=== PATIENT | male | born 1960 | race Caucasian/White ===

== ENCOUNTER 2018-03-18 09:55 | Inpatient (IN) | payer MEDICAID, OTHER ==
[~2018-03-18] VITALS: Ht 182.9 cm; Wt 96.0 kg
[2018-03-18] VITALS (15 sets, daily range): BP systolic 142–186; BP diastolic 73–115
[~2018-03-18 09:55] MED LIST: ASPI-1071 PO; ATOR10TA PO; CARV-50 PO; FURO-150 PO; HYDR-3972 PO; LISI40TA4 PO; PANT-47 PO; POTA10TA15 PO; THI100T PO
[2018-03-18 10:20] LABS: CLARITY,URINE Clear (Clear); COLOR,URINE Yellow (Yellow); GLUCOSE, URINE Negative (Neg); KETONES,URINE Trace mg/dl (Neg); LEUKOCYTE ESTERASE ,URINE Small (Neg); NITRITES, URINE Negative (Neg); OCCULT BLOOD,URINE Negative (Neg); PH,URINE 5.5 (4.8-8.0); PROTEIN,URINE Trace mg/dl (Neg)
[2018-03-18 10:26] LABS: UA COLLECTION TYPE CLN CATCH MIDSTREAM
[2018-03-18 10:42] LABS: BASOPHILS # (AUTO) 0.1 X10'3 (0-0.2); BASOPHILS % (AUTO) 0.7 % (0-1); EOSINOPHILS # (AUTO) 0.2 X10'3 (0-0.9); EOSINOPHILS % (AUTO) 2.1 % (0-6); HEMOGLOBIN 15.9 g/dl (14.0-17.9); LYMPHOCYTES # (AUTO) 1.2 X10'3 (1.1-4.8); LYMPHOCYTES % (AUTO) 16.8 % (21-51); MEAN CORPUSCULAR HEMOGLOBIN 32.9 PG (27.0-31.0); MEAN CORPUSCULAR HGB CONC 32.4 % (33.0-36.5); MEAN CORPUSCULAR VOLUME 101.5 FL (78-98); MEAN PLATELET VOLUME 9.4 FL (7.4-10.4); MONOCYTES # (AUTO) 0.7 X10'3 (0-0.9); MONOCYTES % (AUTO) 10.4 % (2-12); PLATELET COUNT 231 X10'3 (140-440); RED BLOOD COUNT 4.83 X10'6 (4.70-6.10); RED CELL DISTRIBUTION WIDTH 12.4 % (11.5-14.5); WHITE BLOOD COUNT 7.2 X10'3 (4.5-11.0)
[2018-03-18 10:42] LABS: BACTERIA,URINE NONE SEEN /HPF (Neg); MUCUS STRANDS FEW /LPF (Neg); RBC,URINE NONE SEEN /HPF (0-2); SQUAMOUS EPITHELIAL CELL,UR FEW /LPF (FEW); WBC,URINE 0-4 /HPF (0-4)
[2018-03-18 10:48] LABS: ALANINE AMINOTRANSFERASE 48 U/L (12-78); ALKALINE PHOSPHATASE 61 IU/L (46-116); ANION GAP 6 (8-16); ASPARTATE AMINO TRANSFERASE 27 U/L (10-37); BILIRUBIN,TOTAL 0.5 MG/DL (0.1-1.0); BLOOD UREA NITROGEN 18 MG/DL (7-18); BUN/CREATININE RATIO 9.2 (5.4-32.0); CHLORIDE 101 MMOL/L (99-107); CREATININE 1.95 MG/DL (0.60-1.10); GLUCOSE 112 MG/DL (70-104); LIPASE 181 U/L (73-393); SODIUM 136 MMOL/L (135-145); TOTAL CARBON DIOXIDE 29.4 MMOL/L (24-32); eGFR 36 ML/MIN
[2018-03-18] MEDS ORDERED: HYDROmorphone 1 mg/ml syringe IV ONE (12:15)
[2018-03-18] MEDS ORDERED: cloNIDine 0.1 mg tablet PO ONE (12:15)
[2018-03-18] MEDS ORDERED: normal saline 1000ML IV soln IVB ONE (12:20)
[2018-03-18] MEDS ORDERED: magnesium hydroxide 30ml (MOM) UD suspension PO PRN (14:10)
[2018-03-18] MEDS ORDERED: acetaminophen 325mg tablet PO PRN (14:10)
[2018-03-18] MEDS ORDERED: HYDROmorphone inj. 0.5 MG/0.5 ML DISP.SYRIN IV PRN ×2 (14:10)
[2018-03-18] MEDS ORDERED: diphenhydrAMINE 50 mg/ml inj IV PRN (14:10)
[2018-03-18] MEDS ORDERED: acetaminophen 650mg rectal suppository RC PRN (14:10)
[2018-03-18] MEDS ORDERED: metoclopramide 5 mg/ml inj IV PRN (14:10)
[2018-03-18] MEDS ORDERED: ondansetron/PF 4mg/2ml inj IV PRN ×2 (14:10→18:40)
[2018-03-18] MEDS ORDERED: diphenhydrAMINE 25mg capsule PO PRN (14:10)
[2018-03-18] MEDS ORDERED: HYDROcodone/acetaminophen 10/325mg tab PO PRN (14:10)
[2018-03-18] MEDS ORDERED: morphine 4 MG/ML inj SYRINge IV PRN ×4 (14:10→18:40)
[2018-03-18] MEDS ORDERED: bisacodyl 10mg suppository rectal RC PRN (14:10)
[2018-03-18] MEDS ORDERED: mag hydrox/Alum hydrox/simeth 30ml oral suspension PO PRN (14:10)
[2018-03-18 14:42] LABS: PARTIAL THROMBOPLASTIN TIME 27 SECONDS (22-32); PROTHROMBIN TIME 10.6 SECONDS (9.0-12.0)
[2018-03-18] MEDS: pantoprazole 40 MG vial IV SCH (14:44)
[2018-03-18] MEDS: dextrose 5%-1/2 normal saline 1,000 ML IV SCH ×2 (14:44→20:36)
[2018-03-18 14:55] LABS: HEMOGLOBIN A1C 5.9 % (4.5-6.2); MAGNESIUM 2.3 MG/DL (1.5-2.4); PHOSPHORUS 3.2 MG/DL (2.3-4.5)
[2018-03-18] MEDS: hydrALAZINE 20mg/ml inj. IV PRN ×2 (15:39→18:42)
[2018-03-18] MEDS ORDERED: iohexol 300 MG/1 ML 50ml polymer ONE (16:15)
[2018-03-18 17:35] LABS: URINE AMPHETAMINE SCREEN NEGATIVE (Neg); URINE BARBITUATE SCREEN NEGATIVE (Neg); URINE BENZODIAZEPINES SCREEN NEGATIVE (Neg); URINE CANNABINOID SCREEN NEGATIVE (Neg); URINE COCAINE SCREEN NEGATIVE (Neg); URINE METHADONE SCREEN NEGATIVE (Neg); URINE OPIATE SCREEN NEGATIVE (Neg); URINE PHENCYCLIDINE SCREEN NEGATIVE (Neg)
[2018-03-18] MEDS ORDERED: propofol inj 20 ML IV ONE (17:51)
[2018-03-18] MEDS ORDERED: fentaNYL/PF 50MCG/1 ML 2ML syringe ONE (17:51)
[2018-03-18] MEDS ORDERED: ceFAZolin 1000mg inj ONE ×2 (17:51)
[2018-03-18] MEDS ORDERED: midazolam 2 mg/2 ml injection ONE (17:51)
[2018-03-18] MEDS ORDERED: sevoflurane 250ml liquid IH ONE (17:54)
[2018-03-18] MEDS ORDERED: ringers solution, lacted 1,000 ML IV SCH (18:37)
[2018-03-18] MEDS ORDERED: meperidine/PF 25mg/ml syringe IV PRN ×3 (18:40)
[2018-03-18] MEDS ORDERED: labetalol 20mg/4ml (5mg/ml) syringe IV PRN (18:40)
[2018-03-18] MEDS ORDERED: proCHLORperazine 10 MG/2 ml inj IV PRN (18:40)
[2018-03-18] MEDS ORDERED: CefTRIAXone inj 1,000 MG in dextrose 5%-water 50ml 50 ML IV SCH (20:00)
[2018-03-18] MEDS: docusate sod 100mg capsule PO SCH (20:34)
[2018-03-18] MEDS: lisinopril 20mg tablet PO SCH (20:34)
[2018-03-18] MEDS: carvedilol 6.25mg tablet PO SCH (20:35)
[2018-03-18] MEDS ORDERED: temazepam 15mg capsule PO PRN (21:00)
[2018-03-18] MEDS: cloNIDine 0.1 mg tablet PO SCH (21:36)
[2018-03-19] VITALS: BP 141/83
[2018-03-19 03:53] VITALS: BP 148/77
[2018-03-19] MEDS: dextrose 5%-1/2 normal saline 1,000 ML IV SCH ×4 (04:15→19:16)
[2018-03-19 05:48] LABS: BASOPHILS % (AUTO) 0.5 % (0-1); EOSINOPHILS # (AUTO) 0.3 X10'3 (0-0.9); EOSINOPHILS % (AUTO) 3.1 % (0-6); HEMATOCRIT 40.5 % (42.0-52.0); HEMOGLOBIN 13.7 g/dl (14.0-17.9); LYMPHOCYTES # (AUTO) 0.9 X10'3 (1.1-4.8); LYMPHOCYTES % (AUTO) 10.8 % (21-51); MEAN CORPUSCULAR HEMOGLOBIN 33.8 PG (27.0-31.0); MEAN CORPUSCULAR HGB CONC 33.8 % (33.0-36.5); MEAN CORPUSCULAR VOLUME 100.1 FL (78-98); MEAN PLATELET VOLUME 9.2 FL (7.4-10.4); MONOCYTES # (AUTO) 0.7 X10'3 (0-0.9); MONOCYTES % (AUTO) 8.3 % (2-12); NEUTROPHILS # (AUTO) 6.4 X10'3 (1.8-7.7); NEUTROPHILS % (AUTO) 77.3 % (42-75); PLATELET COUNT 203 X10'3 (140-440); RED BLOOD COUNT 4.04 X10'6 (4.70-6.10); RED CELL DISTRIBUTION WIDTH 13.2 % (11.5-14.5); WHITE BLOOD COUNT 8.3 X10'3 (4.5-11.0)
[2018-03-19 06:26] LABS: ALANINE AMINOTRANSFERASE 31 U/L (12-78); ALBUMIN 2.9 G/DL (3.4-5.0); ALBUMIN/GLOBULIN RATIO 0.9 (1.1-1.5); ALKALINE PHOSPHATASE 45 IU/L (46-116); ANION GAP 9 (8-16); ASPARTATE AMINO TRANSFERASE 15 U/L (10-37); BILIRUBIN,TOTAL 0.3 MG/DL (0.1-1.0); BLOOD UREA NITROGEN 15 MG/DL (7-18); BUN/CREATININE RATIO 8.8 (5.4-32.0); CALCIUM 8.2 MG/DL (8.5-10.1); CHLORIDE 103 MMOL/L (99-107); CHOLESTEROL 101 MG/DL (0-200); GLUCOSE 125 MG/DL (70-104); HDL CHOLESTEROL 34 MG/DL (35-60); LDL CHOLESTEROL 60 MG/DL (50-100); POTASSIUM 3.9 MMOL/L (3.5-5.1); SODIUM 136 MMOL/L (135-145); TOTAL CARBON DIOXIDE 23.8 MMOL/L (24-32); TOTAL PROTEIN 6.1 G/DL (6.4-8.2); TRIGLYCERIDES 69 MG/DL (20-135); eGFR 42 ML/MIN
[2018-03-19 07:13] VITALS: BP 152/92
[2018-03-19] MEDS: pantoprazole 40 MG vial IV SCH (07:21)
[2018-03-19] MEDS: carvedilol 6.25mg tablet PO SCH ×2 (07:22→20:09)
[2018-03-19] MEDS: cloNIDine 0.1 mg tablet PO SCH ×3 (07:22→20:09)
[2018-03-19] MEDS: docusate sod 100mg capsule PO SCH ×2 (07:22→20:09)
[2018-03-19] MEDS: lisinopril 20mg tablet PO SCH (07:22)
[2018-03-19] MEDS: cefTRIAXone 1g/NS 100ml IVPB 100 ML IV SCH ×2 (07:23→20:09)
[2018-03-19] MEDS: nicotine 21mg patch - 24 hr TD SCH (07:23)
[2018-03-19] MEDS: HYDROcodone/acetaminophen 5mg/325mg tablet PO PRN ×2 (07:23→20:13)
[2018-03-19 11:25] VITALS: BP 159/93
[2018-03-19] MEDS ORDERED: NO HOME MEDS (12:05)
[2018-03-19 18:00] VITALS: BP 173/94
[2018-03-20] VITALS: BP 177/99
[2018-03-20 00:25] VITALS: BP 142/85
[2018-03-20] MEDS: dextrose 5%-1/2 normal saline 1,000 ML IV SCH ×2 (02:25→10:10)
[2018-03-20 05:46] LABS: BASOPHILS % (AUTO) 0.5 % (0-1); EOSINOPHILS # (AUTO) 0.4 X10'3 (0-0.9); EOSINOPHILS % (AUTO) 6.3 % (0-6); HEMATOCRIT 38.7 % (42.0-52.0); HEMOGLOBIN 13.1 g/dl (14.0-17.9); LYMPHOCYTES # (AUTO) 1.2 X10'3 (1.1-4.8); LYMPHOCYTES % (AUTO) 21.4 % (21-51); MEAN CORPUSCULAR HEMOGLOBIN 34.1 PG (27.0-31.0); MEAN CORPUSCULAR HGB CONC 33.8 % (33.0-36.5); MEAN CORPUSCULAR VOLUME 101.1 FL (78-98); MEAN PLATELET VOLUME 9.7 FL (7.4-10.4); MONOCYTES # (AUTO) 0.8 X10'3 (0-0.9); MONOCYTES % (AUTO) 14.7 % (2-12); NEUTROPHILS # (AUTO) 3.2 X10'3 (1.8-7.7); NEUTROPHILS % (AUTO) 57.1 % (42-75); PLATELET COUNT 173 X10'3 (140-440); RED BLOOD COUNT 3.83 X10'6 (4.70-6.10); WHITE BLOOD COUNT 5.7 X10'3 (4.5-11.0)
[2018-03-20 06:31] LABS: ALANINE AMINOTRANSFERASE 29 U/L (12-78); ALBUMIN 2.8 G/DL (3.4-5.0); ALBUMIN/GLOBULIN RATIO 0.9 (1.1-1.5); ALKALINE PHOSPHATASE 45 IU/L (46-116); ANION GAP 10 (8-16); ASPARTATE AMINO TRANSFERASE 20 U/L (10-37); BILIRUBIN,TOTAL 0.2 MG/DL (0.1-1.0); BLOOD UREA NITROGEN 15 MG/DL (7-18); BUN/CREATININE RATIO 9.3 (5.4-32.0); CALCIUM 8.2 MG/DL (8.5-10.1); CHLORIDE 106 MMOL/L (99-107); CREATININE 1.61 MG/DL (0.60-1.10); GLUCOSE 120 MG/DL (70-104); POTASSIUM 3.9 MMOL/L (3.5-5.1); SODIUM 139 MMOL/L (135-145); TOTAL CARBON DIOXIDE 23.2 MMOL/L (24-32); eGFR 45 ML/MIN
[2018-03-20] MEDS: lisinopril 20mg tablet PO SCH (07:28)
[2018-03-20] MEDS: cloNIDine 0.1 mg tablet PO SCH ×2 (07:29→13:09)
[2018-03-20] MEDS: carvedilol 6.25mg tablet PO SCH (07:29)
[2018-03-20] MEDS ORDERED: pantoprazole 40mg Tablet.DR PO SCH (07:30)
[2018-03-20] MEDS: cefTRIAXone 1g/NS 100ml IVPB 100 ML IV SCH (07:31)
[2018-03-20] MEDS: nicotine 21mg patch - 24 hr TD SCH (07:31)
[2018-03-20 08:00] VITALS: BP 169/105
[2018-03-20] MEDS: docusate sod 100mg capsule PO SCH (08:00)
[2018-03-20 08:45] VITALS: BP 154/95
[2018-03-20 12:00] VITALS: BP 156/97
[2018-03-20] MEDS ORDERED: CARV6.256 PO (15:04)
[2018-03-20] MEDS ORDERED: TRAM50TA2 PO (15:04)
[2018-03-20] MEDS ORDERED: LISI-600 PO (15:04)
== END 2018-03-20 17:40 | disposition home health service (06) | DRG 465 ==
LOC: ER 09:56 → ED HOLD 14:09 → SUR 3N 16:05
PROVIDERS: ADMIT Family Medicine; ATTEND Family Medicine
PROC: BT1F1ZZ Fluoroscopy of Left Kidney, Ureter and Bladder using Low Osmolar Contrast (ICD-10-PCS; 2018-03-18)
PROC: 0T778DZ Dilation of Left Ureter with Intraluminal Device, Via Natural or Artificial Opening Endoscopic (ICD-10-PCS; principal; 2018-03-18 17:54)
DX: N13.2 Hydronephrosis with renal and ureteral calculous obstruction (principal); N17.9 Acute kidney failure, unspecified; I13.0 Hypertensive heart and chronic kidney disease with heart failure and stage 1 through stage 4 chronic kidney disease, or unspecified chronic kidney disease; I50.9 Heart failure, unspecified; N18.3 Chronic kidney disease, stage 3 (moderate); I16.1 Hypertensive emergency; Z60.2 Problems related to living alone; I25.10 Atherosclerotic heart disease of native coronary artery without angina pectoris; E66.9 Obesity, unspecified; F17.220 Nicotine dependence, chewing tobacco, uncomplicated; J44.9 Chronic obstructive pulmonary disease, unspecified; N40.0 Benign prostatic hyperplasia without lower urinary tract symptoms; Z72.89 Other problems related to lifestyle; I25.2 Old myocardial infarction; Z82.49 Family history of ischemic heart disease and other diseases of the circulatory system; Z68.28 Body mass index [BMI] 28.0-28.9, adult
CPT/HCPCS: 36415; 71045; 74176; 76000; 80053; 80061; 80305; 81001; 83036; 83690; 83735; 83880; 84100; 84443; 84484; 85025; 85610; 85730; 87070; 87077; 87088; 87186; 96361; 96374; 99285; A4402; C1758; C1769; C2617; C9113; J0360; J0690; J0696; J1170; J2250; J2704; J3010; J7030; J7060; J7120; Q9967

== ENCOUNTER 2019-03-07 15:54 | Inpatient (IN) | payer MEDICAID, OTHER ==
[~2019-03-07] VITALS: Ht 182.9 cm; Wt 100.0 kg
[~2019-03-07 15:54] MED LIST changes: -ASPI-1071 PO; -ATOR10TA PO; -CARV-50 PO; +CARV6.256 PO; -FURO-150 PO; -HYDR-3972 PO; +LISI-600 PO; -LISI40TA4 PO; +NO HOME MEDS; -PANT-47 PO; -POTA10TA15 PO; -THI100T PO; +TRAM50TA2 PO
[2019-03-07] MEDS ORDERED: furosemide 20MG tablet PO ONE (16:05)
[2019-03-07] MEDS ORDERED: nitroGLYCERIN 0.4mg/hour patch TD ONE (16:05)
[2019-03-07] MEDS ORDERED: carVEDilol 3.125mg tablet PO SCH ×2 (16:15→20:00)
[2019-03-07 16:26] LABS: BASOPHILS # (AUTO) 0.1 X10'3 (0-0.2); EOSINOPHILS # (AUTO) 0.3 X10'3 (0-0.9); HEMATOCRIT 41.1 % (42.0-52.0); LYMPHOCYTES # (AUTO) 1.2 X10'3 (1.1-4.8); LYMPHOCYTES % (AUTO) 14.7 % (21-51); MEAN CORPUSCULAR HGB CONC 34.1 g/dL (33.0-36.5); MEAN CORPUSCULAR VOLUME 102.5 FL (78-98); MEAN PLATELET VOLUME 9.3 FL (7.4-10.4); MONOCYTES # (AUTO) 0.9 X10'3 (0-0.9); MONOCYTES % (AUTO) 11.2 % (2-12); NEUTROPHILS # (AUTO) 5.6 X10'3 (1.8-7.7); NEUTROPHILS % (AUTO) 69.1 % (42-75); PLATELET COUNT 191 X10'3 (140-440); RED BLOOD COUNT 4.01 X10'6 (4.70-6.10); WHITE BLOOD COUNT 8.1 X10'3 (4.5-11.0)
--- NOTE | 2019-03-07 16:26 | NUR ---
PT IS RESTING QUIETLY ON BED, RESP EVEN AND UNLABORED, SKIN P/W/D, WAITING FOR LAB RESULTS
[2019-03-07 16:43] LABS: ALANINE AMINOTRANSFERASE 93 U/L (12-78); ALBUMIN 3.4 G/DL (3.4-5.0); ALBUMIN/GLOBULIN RATIO 1.1 (1.1-1.5); ALKALINE PHOSPHATASE 57 IU/L (46-116); ANION GAP 10 (8-16); ASPARTATE AMINO TRANSFERASE 33 U/L (10-37); BILIRUBIN,TOTAL 0.7 MG/DL (0.1-1.0); BLOOD UREA NITROGEN 23 MG/DL (7-18); BUN/CREATININE RATIO 12.2 (5.4-32.0); CALCIUM 8.5 MG/DL (8.5-10.1); CHLORIDE 109 MMOL/L (99-107); CREATININE 1.89 MG/DL (0.60-1.10); GLUCOSE 109 MG/DL (70-104); SODIUM 142 MMOL/L (135-145); TOTAL CARBON DIOXIDE 23.2 MMOL/L (24-32); TOTAL PROTEIN 6.6 G/DL (6.4-8.2); eGFR 37 ML/MIN
[2019-03-07 16:48] LABS: MAGNESIUM 2.1 MG/DL (1.5-2.4)
[2019-03-07 16:52] LABS: D-DIMER 0.81 MG/L FEU (0-0.50)
[2019-03-07] MEDS ORDERED: magnesium hydroxide 30ml (MOM) UD suspension PO PRN (17:35)
[2019-03-07] MEDS ORDERED: hydrALAZINE 20mg/ml inj. IV PRN (17:35)
[2019-03-07] MEDS ORDERED: ondansetron/PF 4mg/2ml inj IV PRN (17:35)
[2019-03-07] MEDS ORDERED: mag hydrox/Alum hydrox/simeth 30ml oral suspension PO PRN (17:35)
[2019-03-07] MEDS ORDERED: acetaminophen 325mg tablet PO PRN (17:35)
[2019-03-07] MEDS ORDERED: thiamine 100mg/ml 2ml inj. IV ONE (17:40)
[2019-03-07] MEDS ORDERED: dextrose 50%-water 50ml dispensing syringe IV PRN (17:40)
[2019-03-07] MEDS ORDERED: LORazepam 2 mg/ml vial IV PRN (17:40)
[2019-03-07] MEDS ORDERED: enoxaparin 100mg/ml syringe SUBCUT ONE (17:40)
--- NOTE | 2019-03-07 18:26 | NUR ---
PT IS RESTING QUIETLY ON GURNEY, RESP EVEN AND UNLABORED, WAITING FOR BED ASSIGNMENT
[2019-03-07] MEDS ORDERED: heparin, porcine 5000 units/ml vial SQ SCH (20:00)
[2019-03-07] MEDS: furosemide 40mg/4ml inj IV SCH (20:00)
[2019-03-07] MEDS: carvedilol 6.25mg tablet PO SCH (20:09)
--- NOTE | 2019-03-07 20:10 | NUR ---
PT C/O HEADACHE 09/05, DR LOMAX GAVE VERBAL ORDER TO HOLD LASIX IV AND TO GIVE COREG, PT CONTINUES TO REST QUIETLY ON GURNEY, RESP EVEN AND UNLABORED, EMPTIED URINAL OF 800ML OF YELLOW URINE
--- NOTE | 2019-03-07 20:45 | NUR ---
I have received report from NATE Mcintosh in ER and had the opportunity to ask questions and assume patient care. Awaiting patient arrival to room 3027A.
[2019-03-07 20:55] VITALS: BP 164/101
--- NOTE | 2019-03-07 20:55 | NUR ---
Patient arrived to [facility] via [place]. Patient ambulated from [facility] to bedside with some shortness of breath. Patient 99 on 2L NC. Titrated down to 1L NC to keep between 88-90% per provider order. Placed on telemetry box 57. Patient is awake and oriented X4. Nitroglycerin patch on right shoulder. Blood pressure elevated at 164/101 with HR 80 and no PRN's at this time. Will contact hospitalist to address elevated BP.
--- NOTE | 2019-03-07 21:15 | NUR ---
Dr. Olivares called and notified of elevated BP of 164/101. Gave one time order for Coreg 6.25 mg PO stat.
[2019-03-07] MEDS ORDERED: carvedilol 6.25mg tablet PO STA (21:23)
[2019-03-07 22:00] VITALS: BP 119/76
--- NOTE | 2019-03-08 01:21 | NUR ---
Reassessed BP after one time dose of 6.25mg coreg at 2200 03/07 and was 119/76 with HR 73. Will continue to monitor closely.
[2019-03-08 03:00] VITALS: BP 132/83
[2019-03-08 05:49] LABS: BASOPHILS # (AUTO) 0.1 X10'3 (0-0.2); MEAN CORPUSCULAR HEMOGLOBIN 35.3 PG (27.0-31.0); MEAN PLATELET VOLUME 9.6 FL (7.4-10.4); MONOCYTES # (AUTO) 0.8 X10'3 (0-0.9)
[2019-03-08 05:52] LABS: BASOPHILS % (AUTO) 1.2 % (0-1); EOSINOPHILS # (AUTO) 0.4 X10'3 (0-0.9); EOSINOPHILS % (AUTO) 5.5 % (0-6); HEMOGLOBIN 12.9 g/dl (14.0-17.9); LYMPHOCYTES # (AUTO) 1.4 X10'3 (1.1-4.8); LYMPHOCYTES % (AUTO) 20.4 % (21-51); MEAN CORPUSCULAR HGB CONC 33.9 g/dL (33.0-36.5); MEAN CORPUSCULAR VOLUME 104.1 FL (78-98); MONOCYTES % (AUTO) 11.7 % (2-12); NEUTROPHILS # (AUTO) 4.2 X10'3 (1.8-7.7); NEUTROPHILS % (AUTO) 61.2 % (42-75); PLATELET COUNT 162 X10'3 (140-440); RED BLOOD COUNT 3.65 X10'6 (4.70-6.10); RED CELL DISTRIBUTION WIDTH 14.6 % (11.5-14.5); WHITE BLOOD COUNT 6.9 X10'3 (4.5-11.0)
[2019-03-08 06:13] LABS: ALBUMIN 3.1 G/DL (3.4-5.0); ANION GAP 11 (8-16); BLOOD UREA NITROGEN 22 MG/DL (7-18); BUN/CREATININE RATIO 12.5 (5.4-32.0); CALCIUM 8.4 MG/DL (8.5-10.1); CHLORIDE 107 MMOL/L (99-107); CREATININE 1.76 MG/DL (0.60-1.10); GLUCOSE 92 MG/DL (70-104); POTASSIUM 3.5 MMOL/L (3.5-5.1); SODIUM 142 MMOL/L (135-145); TOTAL CARBON DIOXIDE 24.4 MMOL/L (24-32); eGFR 40 ML/MIN
--- NOTE | 2019-03-08 06:25 | NUR ---
Problems reprioritized. Patient report given, questions answered & plan of care reviewed with NATE Laguerre and NATE Wall.
--- NOTE | 2019-03-08 06:35 | NUR ---
Patient in room PCU 3026. I have received report from Prasanth SULLIVAN and had the opportunity to ask questions and assume patient care. Patient awake in bed. In no acute distress. Will continue to monitor.
--- NOTE | 2019-03-08 06:37 | NUR ---
Patient in room PCU 3023G. I have received report from NATE Rader and had the opportunity to ask questions and assume patient care. Pt awake, in bed at this time. Denies any discomfort or distress. All immediate needs met at this time.
[2019-03-08 07:00] VITALS: BP 172/104
[2019-03-08] MEDS: furosemide 40mg/4ml inj IV SCH ×2 (07:29→19:20)
[2019-03-08] MEDS: carvedilol 6.25mg tablet PO SCH ×2 (07:29→19:20)
[2019-03-08] MEDS: amLODIPine 5mg tablet PO SCH (07:30)
[2019-03-08 11:00] VITALS: BP 146/93
[2019-03-08 15:00] VITALS: BP 153/104
--- NOTE | 2019-03-08 17:56 | NUR ---
[place] documentation: I have reviewed and agree with all interventions, assessments performed and documented by Mae SULLIVAN. [place] Medication Administration: For this medication-pass time frame, all medication were reviewed, dispensed, administered and documented per hospital policy by NATE Wall.
[2019-03-08 18:00] VITALS: BP 167/103
--- NOTE | 2019-03-08 18:25 | NUR ---
Patient in room PCU 3024S. I have received report from Carlotta RN and NATE Wall and had the opportunity to ask questions and assume patient care.
--- NOTE | 2019-03-08 18:33 | NUR ---
Problems reprioritized. Patient report given, questions answered & plan of care reviewed with Katie SULLIVAN. Patient stable at transfer of care.
[2019-03-08 22:00] VITALS: BP 148/89
[2019-03-09 02:00] VITALS: BP 116/66
[2019-03-09 05:19] LABS: BASOPHILS # (AUTO) 0.1 X10'3 (0-0.2); BASOPHILS % (AUTO) 1.1 % (0-1); EOSINOPHILS # (AUTO) 0.4 X10'3 (0-0.9); EOSINOPHILS % (AUTO) 6.1 % (0-6); HEMATOCRIT 41.1 % (42.0-52.0); LYMPHOCYTES # (AUTO) 1.3 X10'3 (1.1-4.8); LYMPHOCYTES % (AUTO) 20.1 % (21-51); MEAN CORPUSCULAR HEMOGLOBIN 34.9 PG (27.0-31.0); MEAN CORPUSCULAR HGB CONC 34.1 g/dL (33.0-36.5); MEAN CORPUSCULAR VOLUME 102.3 FL (78-98); MEAN PLATELET VOLUME 9.1 FL (7.4-10.4); MONOCYTES # (AUTO) 0.9 X10'3 (0-0.9); MONOCYTES % (AUTO) 13.5 % (2-12); NEUTROPHILS # (AUTO) 3.8 X10'3 (1.8-7.7); NEUTROPHILS % (AUTO) 59.2 % (42-75); PLATELET COUNT 177 X10'3 (140-440); RED BLOOD COUNT 4.02 X10'6 (4.70-6.10); RED CELL DISTRIBUTION WIDTH 14.4 % (11.5-14.5); WHITE BLOOD COUNT 6.4 X10'3 (4.5-11.0)
[2019-03-09 05:39] LABS: ALBUMIN 3.1 G/DL (3.4-5.0); ANION GAP 8 (8-16); BLOOD UREA NITROGEN 19 MG/DL (7-18); BUN/CREATININE RATIO 11.5 (5.4-32.0); CALCIUM 8.5 MG/DL (8.5-10.1); CHLORIDE 105 MMOL/L (99-107); CREATININE 1.65 MG/DL (0.60-1.10); GLUCOSE 97 MG/DL (70-104); POTASSIUM 3.5 MMOL/L (3.5-5.1); SODIUM 140 MMOL/L (135-145); TOTAL CARBON DIOXIDE 26.9 MMOL/L (24-32); eGFR 43 ML/MIN
[2019-03-09 06:00] VITALS: BP 165/103
--- NOTE | 2019-03-09 06:27 | NUR ---
Problems reprioritized. Patient report given, questions answered & plan of care reviewed with NATE Laguerre and NATE Ramirez.
--- NOTE | 2019-03-09 06:35 | NUR ---
Patient in room PCU 3026. I have received report from Katie SULLIVAN and had the opportunity to ask questions and assume patient care. Pt is in bed resting, denies discomfort/pain, all needs met at this time. will continue to monitor.
--- NOTE | 2019-03-09 06:35 | NUR ---
Patient in room PCU 3026. I have received report from Katie SULLIVAN and had the opportunity to ask questions and assume patient care. Patient awake in bed with no complaints at this time. All immediate needs met.
[2019-03-09] MEDS: carvedilol 6.25mg tablet PO SCH (07:19)
[2019-03-09] MEDS: amLODIPine 5mg tablet PO SCH (07:20)
[2019-03-09] MEDS: furosemide 40mg/4ml inj IV SCH (07:20)
[2019-03-09 08:00] VITALS: BP 139/91
[2019-03-09] MEDS ORDERED: aspirin 81mg tablet.DR PO SCH (08:00)
[2019-03-09] MEDS ORDERED: atorvastatin 20mg tablet PO SCH (08:00)
[2019-03-09 11:00] VITALS: BP 155/94
[2019-03-09] MEDS ORDERED: POTA20TA19 PO (11:04)
[2019-03-09] MEDS ORDERED: NOR5T PO (11:04)
[2019-03-09] MEDS ORDERED: FURO40TA4 PO (11:04)
[2019-03-09] MEDS ORDERED: ASPI-1071 PO (11:04)
[2019-03-09] MEDS ORDERED: ATOR20TA66 PO (11:04)
[2019-03-09] MEDS ORDERED: CARV6.253 PO (11:04)
--- NOTE | 2019-03-09 13:20 | NUR ---
Patient is stable for discharge per MD orders, d/c instructions reviewed with pt, all questions answered, new medication prescriptions delivered by bedside via [facility], Tele box 57 removed and returned, PIV d/c'ed and clean dry dressing in place, pt is discharged to home @ 1315, walked down to [facility] with hospital staff and picked up by girlfriend in private vehicle, all belongings with pt at time of discharge.
--- NOTE | 2019-03-09 17:37 | NUR ---
Orientee documentation: I have reviewed and agree with all interventions, assessments performed and documented by James SULLIVAN. [place] Medication Administration: For this medication-pass time frame, all medication were reviewed, dispensed, administered and documented per hospital policy by James SULLIVAN.
[2019-03-09] MEDS ORDERED: LORazepam 1 MG tablet PO PRN (17:40)
[2019-03-09] MEDS ORDERED: LORazepam 2 mg/ml vial IV PRN (17:40)
[2019-03-11] MEDS ORDERED: LORazepam 1 MG tablet PO PRN (17:40)
[2019-03-11] MEDS ORDERED: LORazepam 2 mg/ml vial IV PRN (17:40)
== END 2019-03-09 13:15 | disposition home or self-care (01) | DRG 194 ==
LOC: ER 15:54 → EDBEDREQTM 20:26 → PCU 3S 20:43 → CMPBEDREQ 21:24
PROVIDERS: ADMIT Family Medicine; ATTEND Family Medicine
PROC: CB121ZZ Planar Nuclear Medicine Imaging of Lungs and Bronchi using Technetium 99m (Tc-99m) (ICD-10-PCS; principal; 2019-03-08)
DX: I13.0 Hypertensive heart and chronic kidney disease with heart failure and stage 1 through stage 4 chronic kidney disease, or unspecified chronic kidney disease (principal); I21.A1 Myocardial infarction type 2; I50.23 Acute on chronic systolic (congestive) heart failure; F10.20 Alcohol dependence, uncomplicated; J44.9 Chronic obstructive pulmonary disease, unspecified; Z60.2 Problems related to living alone; N18.9 Chronic kidney disease, unspecified; Z82.49 Family history of ischemic heart disease and other diseases of the circulatory system; Z87.891 Personal history of nicotine dependence; Z90.49 Acquired absence of other specified parts of digestive tract
CPT/HCPCS: 36415; 71045; 78582; 80048; 80053; 83735; 83880; 84484; 85025; 85379; 85610; 87081; 93005; 93306; 96372; 96374; 96375; 97116; 97162; 99285; A9539; A9540; G0378; J0360; J1650; J1940; J3411

== ENCOUNTER 2019-09-30 11:33 | Emergency (ER) | payer MEDICAID ==
[~2019-09-30] VITALS: Ht 185.4 cm; Wt 116.0 kg
[~2019-09-30 11:33] MED LIST changes: +ASPI-1071 PO; +ATOR20TA66 PO; +CARV6.253 PO; -CARV6.256 PO; -LISI-600 PO; -NO HOME MEDS; +NOR5T PO; -TRAM50TA2 PO
--- NOTE | 2019-09-30 13:01 | NUR ---
DINO Morales at bedside.
[2019-09-30 14:05] VITALS: BP 216/154
--- NOTE | 2019-09-30 14:28 | NUR ---
Asked DINO Morales about treating pt's BP. She will put orders in.
[2019-09-30] MEDS ORDERED: LISI-600 PO (14:38)
== END 2019-09-30 14:54 | disposition home or self-care (01) ==
LOC: ER 11:33
DX: S80.12XA Contusion of left lower leg, initial encounter (principal); J44.9 Chronic obstructive pulmonary disease, unspecified; I13.0 Hypertensive heart and chronic kidney disease with heart failure and stage 1 through stage 4 chronic kidney disease, or unspecified chronic kidney disease; N18.9 Chronic kidney disease, unspecified; I50.9 Heart failure, unspecified; Z98.890 Other specified postprocedural states; Z60.2 Problems related to living alone; Z72.89 Other problems related to lifestyle; Z79.82 Long term (current) use of aspirin; Z79.899 Other long term (current) drug therapy; X58.XXXA Exposure to other specified factors, initial encounter; Y93.89 Activity, other specified; Y92.89 Other specified places as the place of occurrence of the external cause; Y99.8 Other external cause status
CPT/HCPCS: 73590; 99283

== ENCOUNTER 2019-11-16 15:22 | Observation (INO) | payer BC, MEDICAID, MEDICARE ==
[~2019-11-16] VITALS: Ht 177.8 cm; Wt 117.5 kg
[2019-11-16] MEDS ORDERED: morphine 4 MG/ML inj SYRINge IV ONE (15:40)
[2019-11-16] MEDS ORDERED: ondansetron/PF 4mg/2ml inj IV ONE (15:40)
[2019-11-16 16:06] LABS: BASOPHILS # (AUTO) 0.1 X10'3 (0-0.2); BASOPHILS % (AUTO) 0.7 % (0-1); EOSINOPHILS # (AUTO) 0.1 X10'3 (0-0.9); EOSINOPHILS % (AUTO) 1.1 % (0-6); HEMATOCRIT 43.2 % (42.0-52.0); HEMOGLOBIN 14.2 g/dl (14.0-17.9); LYMPHOCYTES # (AUTO) 1.2 X10'3 (1.1-4.8); LYMPHOCYTES % (AUTO) 15.5 % (21-51); MEAN CORPUSCULAR HEMOGLOBIN 34.6 PG (27.0-31.0); MEAN CORPUSCULAR HGB CONC 32.9 g/dL (33.0-36.5); MEAN CORPUSCULAR VOLUME 105.1 FL (78-98); MEAN PLATELET VOLUME 9.2 FL (7.4-10.4); MONOCYTES % (AUTO) 12.8 % (2-12); NEUTROPHILS # (AUTO) 5.2 X10'3 (1.8-7.7); NEUTROPHILS % (AUTO) 69.9 % (42-75); PLATELET COUNT 179 X10'3 (140-440); RED BLOOD COUNT 4.11 X10'6 (4.70-6.10); RED CELL DISTRIBUTION WIDTH 14.9 % (11.5-14.5); WHITE BLOOD COUNT 7.5 X10'3 (4.5-11.0)
[2019-11-16 16:23] LABS: ALANINE AMINOTRANSFERASE 72 U/L (12-78); ALBUMIN 3.7 G/DL (3.4-5.0); ALBUMIN/GLOBULIN RATIO 1.3 (1.1-1.5); ALKALINE PHOSPHATASE 54 IU/L (46-116); ANION GAP 6 (8-16); ASPARTATE AMINO TRANSFERASE 60 U/L (10-37); BILIRUBIN,TOTAL 0.8 MG/DL (0.1-1.0); BLOOD UREA NITROGEN 32 MG/DL (7-18); CHLORIDE 109 MMOL/L (99-107); CREATININE 2.14 MG/DL (0.60-1.10); GLUCOSE 104 MG/DL (70-104); POTASSIUM 4.8 MMOL/L (3.5-5.1); SODIUM 142 MMOL/L (135-145); TOTAL CARBON DIOXIDE 26.8 MMOL/L (24-32); TOTAL PROTEIN 6.5 G/DL (6.4-8.2); eGFR 32 ML/MIN
[2019-11-16 16:24] LABS: CLARITY,URINE CLEAR (Clear); COLOR,URINE YELLOW (Yellow); GLUCOSE, URINE NEGATIVE (Neg); KETONES,URINE TRACE mg/dl (Neg); LEUKOCYTE ESTERASE ,URINE NEGATIVE (Neg); NITRITES, URINE NEGATIVE (Neg); OCCULT BLOOD,URINE MODERATE (Neg); PH,URINE 5.5 (4.8-8.0); PROTEIN,URINE >=300 mg/dl (Neg)
[2019-11-16 16:26] LABS: UA COLLECTION TYPE CLN CATCH MIDSTREAM
[2019-11-16 16:30] LABS: MAGNESIUM 2.4 MG/DL (1.5-2.4); PHOSPHORUS 4.4 MG/DL (2.3-4.5)
[2019-11-16 16:31] LABS: BACTERIA,URINE NONE SEEN /HPF (Neg); CELLULAR CAST 0-4 /LPF (NEGATIVE); MUCUS STRANDS FEW /LPF (Neg); RBC,URINE NONE SEEN /HPF (0-2); SQUAMOUS EPITHELIAL CELL,UR FEW /LPF (FEW); WBC,URINE 0-4 /HPF (0-4)
[2019-11-16 16:33] LABS: HYALINE CASTS 0-3 /LPF (NEGATIVE)
[2019-11-16] MEDS ORDERED: furosemide 10 MG/1 ML 10ml inj IV ONE (16:35)
[2019-11-16] MEDS ORDERED: nitroGLYCERIN-Tridil 50MG/D5W 250 ML IV SCH (16:50)
[2019-11-16] MEDS ORDERED: hydrALAZINE 20mg/ml inj. IV ONE (16:50)
[2019-11-16] MEDS: normal saline 1000ml 1,000 ML IV SCH (16:52)
[2019-11-16] MEDS ORDERED: ondansetron/PF 4mg/2ml inj IV PRN (16:55)
[2019-11-16] MEDS ORDERED: magnesium 4gm in 100ml NS 100 ML IV PRN (16:55)
[2019-11-16] MEDS ORDERED: acetaminophen 325mg tablet PO PRN ×2 (16:55)
[2019-11-16] MEDS ORDERED: morphine 2 MG/ML inj. syringe IV PRN ×2 (16:55)
[2019-11-16] MEDS ORDERED: magnesium hydroxide 30ml (MOM) UD suspension PO PRN (16:55)
[2019-11-16] MEDS ORDERED: bisacodyl 10mg suppository rectal RC PRN (16:55)
[2019-11-16] MEDS ORDERED: potassium CL 10mEq/100ml bag 100 ML IV PRN ×2 (16:55)
[2019-11-16] MEDS ORDERED: potassium Cl 20 mEq SR tablet PO PRN ×2 (16:55)
[2019-11-16] MEDS ORDERED: mag hydrox/Alum hydrox/simeth 30ml oral suspension PO PRN (16:55)
[2019-11-16] MEDS ORDERED: nitroGLYCERIN 0.4mg SUBLingual tab SL PRN ×2 (16:55)
[2019-11-16] MEDS ORDERED: magnesium 2GM in 50ml NS 50 ML IV PRN (16:55)
[2019-11-16] MEDS ORDERED: acetaminophen 650mg rectal suppository RC PRN (16:55)
[2019-11-16] MEDS ORDERED: regadenoson 0.4mg/5ml syringe IV PRN (16:55)
[2019-11-16] MEDS ORDERED: HYDROcodone/acetaminophen 10/325mg tab PO PRN (16:55)
[2019-11-16] MEDS ORDERED: aspirin 325mg tablet PO ONE (16:55)
[2019-11-16] MEDS ORDERED: aminophylline 250mg/10ml inj. IV PRN (16:55)
[2019-11-16] MEDS ORDERED: metoclopramide 5 mg/ml inj IV PRN (16:55)
[2019-11-16] MEDS ORDERED: metoprolol tartrate 1mg/ml inj IV PRN (16:55)
[2019-11-16] MEDS ORDERED: HYDROcodone/acetaminophen 5mg/325mg tablet PO PRN (16:55)
[2019-11-16] MEDS ORDERED: magnesium Cl slow-release 64mg tablet PO PRN (16:55)
[2019-11-16 17:24] LABS: HEMOGLOBIN A1C 5.5 % (4.5-6.2)
[2019-11-16] MEDS ORDERED: NO HOME MEDS (17:28)
[2019-11-16] MEDS: K and/or MAG REPLACEMENT MC SCH (19:45)
[2019-11-16] MEDS: furosemide 40mg/4ml inj IV SCH (20:00)
[2019-11-16] MEDS: metoprolol tartrate 25mg tablet PO SCH (20:00)
[2019-11-16] MEDS ORDERED: temazepam 15mg capsule PO PRN (21:00)
[2019-11-16 21:30] VITALS: BP 152/93
[2019-11-16 22:00] VITALS: BP 150/95
[2019-11-16 23:00] VITALS: BP 155/101
[2019-11-17] VITALS (18 sets, daily range): BP systolic 144–170; BP diastolic 72–134
[2019-11-17] MEDS: normal saline 1000ml 1,000 ML IV SCH (03:04)
--- NOTE | 2019-11-17 03:04 | NUR ---
Page Sent to DR. ANGEL promotional table spacer PAGER ID: [phone] MESSAGE: [id number] - Dylon Wallis 52/M - HTN sustaining 164 - 170s systolic while on nitro @ 1.5mls patient in no pain. Would ya like to order a prn antihypertensive? [phone] Ilan Graves
[2019-11-17] MEDS ORDERED: hydrALAZINE 20mg/ml inj. IV PRN (04:15)
[2019-11-17 05:07] LABS: HEMOGLOBIN 14.3 g/dl (14.0-17.9); MEAN CORPUSCULAR HGB CONC 33.3 g/dL (33.0-36.5); MEAN PLATELET VOLUME 9.4 FL (7.4-10.4); PLATELET COUNT 170 X10'3 (140-440); WHITE BLOOD COUNT 6.3 X10'3 (4.5-11.0)
[2019-11-17 05:29] LABS: ALBUMIN 3.6 G/DL (3.4-5.0); ANION GAP 6 (8-16); BLOOD UREA NITROGEN 33 MG/DL (7-18); BUN/CREATININE RATIO 15.8 (5.4-32.0); CALCIUM 8.9 MG/DL (8.5-10.1); CHLORIDE 106 MMOL/L (99-107); CHOL/HDL RATIO 3.8 (0.00-4.99); CHOLESTEROL 130 MG/DL (0-200); CREATININE 2.09 MG/DL (0.60-1.10); GLUCOSE 95 MG/DL (70-104); HDL CHOLESTEROL 34 MG/DL (35-60); LDL CHOLESTEROL 83 MG/DL (50-100); MAGNESIUM 2.4 MG/DL (1.5-2.4); PHOSPHORUS 4.4 MG/DL (2.3-4.5); POTASSIUM 4.2 MMOL/L (3.5-5.1); SODIUM 140 MMOL/L (135-145); TOTAL CARBON DIOXIDE 27.8 MMOL/L (24-32); TRIGLYCERIDES 104 MG/DL (20-135); eGFR 33 ML/MIN
--- NOTE | 2019-11-17 06:12 | NUR ---
Problems reprioritized. Patient report given, questions answered & plan of care reviewed with tiki aldridge
--- NOTE | 2019-11-17 06:21 | NUR ---
Patient in room PCU 3016A. I have received report from Ilan SULLIVAN and had the opportunity to ask questions and assume patient care. Patient laying in bed, no signs of distress, will continue to monitor.
[2019-11-17] MEDS ORDERED: atorvastatin 20mg tablet PO SCH (08:00)
[2019-11-17] MEDS ORDERED: enoxaparin 40mg/0.4ml syringe SUBCUT SCH (08:00)
[2019-11-17] MEDS: K and/or MAG REPLACEMENT MC SCH (08:00)
[2019-11-17] MEDS ORDERED: aspirin 81mg tablet.DR PO SCH (08:30)
--- NOTE | 2019-11-17 08:51 | NUR ---
PAGER ID: [phone] MESSAGE: Anette le [phone]. RE Abdoulaye Gupta [id number]. Pt has order for Paola, however is currently on NTG drip, BP 160/70 on NTG gtt. Do you want to put this on hold to obtain Paola? Thanks!
[2019-11-17] MEDS ORDERED: amLODIPine 5mg tablet PO ONE (08:55)
[2019-11-17] MEDS ORDERED: nitroGLYCERIN 0.4mg/hour patch TD SCH (09:00)
--- NOTE | 2019-11-17 09:04 | NUR ---
Dr. Johnson gave orders to hold NTG gtt, add Norvasc 10mg Now and then daily, as well as start patient on NTG patch. NTG gtt held at this time. Discussed with USINE IO tech, will hold NTG patch until after catrina.
[2019-11-17] MEDS: furosemide 40mg/4ml inj IV SCH (09:22)
[2019-11-17] MEDS: metoprolol tartrate 25mg tablet PO SCH (09:23)
--- NOTE | 2019-11-17 10:50 | NUR ---
Pt to rd at this time
--- NOTE | 2019-11-17 12:20 | NUR ---
PAGER ID: [phone] MESSAGE: Aentte le [phone]. RE Abdoulaye Gupta 3016A. HR 76, blood pressure 181/92, no CP at this time. Thanks!
--- NOTE | 2019-11-17 12:21 | NUR ---
Per Dr. Johnson hold NTG patch at this time.
[2019-11-17] MEDS ORDERED: losartan 50mg tablet PO SCH (12:35)
--- NOTE | 2019-11-17 13:27 | NUR ---
PAGER ID: [phone] MESSAGE: Anette le [phone]. RE Abdoulaye Gupta 3016A. Pt catrina back, negative scan, EF 47%. Thanks!
[2019-11-17] MEDS ORDERED: ASPI-1071 PO (15:50)
[2019-11-17] MEDS ORDERED: ATOR20TA66 PO (15:50)
[2019-11-17] MEDS ORDERED: METO25TA6 PO (15:50)
[2019-11-17] MEDS ORDERED: FURO20TA4 PO (15:50)
[2019-11-17] MEDS ORDERED: NOR5T PO (15:50)
[2019-11-17] MEDS ORDERED: LOSA50TA64 PO (15:50)
--- NOTE | 2019-11-17 16:45 | NUR ---
Per MD order by Dr. Johnson, patient is stable for discharge home. Discharge packet printed and reviewed with the patient. All prescriptions sent to pharmacy of choice. IV removed and tele monitor removed. All questions answered. Instructions for follow up and return precautions given. All belongings sent with patient. Patient escorted to private vehicle to go home with family.
[2019-11-18] MEDS ORDERED: amLODIPine 5mg tablet PO SCH (08:00)
== END 2019-11-17 16:48 | disposition home or self-care (01) ==
LOC: ER 15:23 → ED HOLD 16:52 → PCU 3S 20:50
PROVIDERS: ADMIT Family Medicine; ATTEND Family Medicine
DX: I13.0 Hypertensive heart and chronic kidney disease with heart failure and stage 1 through stage 4 chronic kidney disease, or unspecified chronic kidney disease (principal); I50.23 Acute on chronic systolic (congestive) heart failure; N17.9 Acute kidney failure, unspecified; R07.9 Chest pain, unspecified; N18.9 Chronic kidney disease, unspecified; J44.9 Chronic obstructive pulmonary disease, unspecified; Z72.0 Tobacco use; E78.5 Hyperlipidemia, unspecified; I34.0 Nonrheumatic mitral (valve) insufficiency; Z91.14 Patient's other noncompliance with medication regimen
CPT/HCPCS: 36415; 71045; 78452; 80048; 80053; 80061; 81001; 83036; 83735; 83880; 84100; 84484; 85025; 85027; 85610; 87081; 93005; 93017; 93306; 96365; 96372; 96375; 96376; 99285; A9500; G0378; J0360; J1940; J2270; J2405; J2785; J7030; J1650; J3490

== ENCOUNTER 2020-05-13 10:50 | Inpatient (IN) | payer MEDICAID ==
[~2020-05-13] VITALS: Ht 185.4 cm; Wt 100.0 kg
[~2020-05-13 10:50] MED LIST changes: -CARV6.253 PO; +FURO20TA4 PO; +LOSA50TA64 PO; +METO25TA6 PO
[2020-05-13] MEDS ORDERED: hydrALAZINE 20mg/ml inj. IV ONE (11:25)
[2020-05-13] MEDS ORDERED: furosemide 10 MG/1 ML 10ml inj IV ONE (11:30)
[2020-05-13 11:49] LABS: BASOPHILS # (AUTO) 0.1 X10'3 (0-0.2); BASOPHILS % (AUTO) 0.9 % (0-1); EOSINOPHILS % (AUTO) 0.4 % (0-6); HEMATOCRIT 45.5 % (42.0-52.0); HEMOGLOBIN 15.2 g/dl (14.0-17.9); LYMPHOCYTES % (AUTO) 13.2 % (21-51); MEAN CORPUSCULAR HEMOGLOBIN 34.7 PG (27.0-31.0); MEAN CORPUSCULAR HGB CONC 33.4 g/dL (33.0-36.5); MEAN PLATELET VOLUME 9.2 FL (7.4-10.4); MONOCYTES # (AUTO) 0.8 X10'3 (0-0.9); MONOCYTES % (AUTO) 10.7 % (2-12); NEUTROPHILS # (AUTO) 5.8 X10'3 (1.8-7.7); NEUTROPHILS % (AUTO) 74.8 % (42-75); PLATELET COUNT 216 X10'3 (140-440); RED BLOOD COUNT 4.37 X10'6 (4.70-6.10); RED CELL DISTRIBUTION WIDTH 13.5 % (11.5-14.5); WHITE BLOOD COUNT 7.7 X10'3 (4.5-11.0)
[2020-05-13 12:08] LABS: ALANINE AMINOTRANSFERASE 40 U/L (12-78); ALBUMIN/GLOBULIN RATIO 1.2 (1.1-1.5); ALKALINE PHOSPHATASE 59 IU/L (46-116); ANION GAP 12 (8-16); ASPARTATE AMINO TRANSFERASE 25 U/L (10-37); BILIRUBIN,TOTAL 1.2 MG/DL (0.1-1.0); BLOOD UREA NITROGEN 23 MG/DL (7-18); BUN/CREATININE RATIO 9.5 (5.4-32.0); CALCIUM 9.4 MG/DL (8.5-10.1); CHLORIDE 105 MMOL/L (99-107); CREATININE 2.43 MG/DL (0.60-1.10); GLUCOSE 108 MG/DL (70-104); POTASSIUM 3.9 MMOL/L (3.5-5.1); SODIUM 142 MMOL/L (135-145); TOTAL CARBON DIOXIDE 24.7 MMOL/L (24-32); TOTAL PROTEIN 7.3 G/DL (6.4-8.2); eGFR 27 ML/MIN
[2020-05-13] MEDS ORDERED: niCARDipine-NS 40mg/200ml IVPB 200 ML IV PRN (12:40)
[2020-05-13] MEDS ORDERED: aspirin 325mg tablet PO ONE (12:40)
[2020-05-13] MEDS ORDERED: nitroGLYCERIN-Tridil 50MG/D5W 250 ML IV SCH (12:50)
[2020-05-13] MEDS ORDERED: HYDROcodone/acetaminophen 5mg/325mg tablet PO PRN (13:15)
[2020-05-13] MEDS ORDERED: acetaminophen 325mg tablet PO PRN (13:15)
[2020-05-13] MEDS ORDERED: ondansetron/PF 4mg/2ml inj IV PRN (13:15)
[2020-05-13] MEDS ORDERED: potassium Cl 20 mEq SR tablet PO PRN (13:15)
[2020-05-13] MEDS ORDERED: magnesium 2GM in 50ml NS 50 ML IV PRN (13:15)
[2020-05-13] MEDS ORDERED: magnesium Cl slow-release 64mg tablet PO PRN (13:15)
[2020-05-13] MEDS ORDERED: magnesium 4gm in 100ml NS 100 ML IV PRN (13:15)
[2020-05-13] MEDS ORDERED: potassium CL 10mEq/100ml bag 100 ML IV PRN ×2 (13:15)
[2020-05-13] MEDS ORDERED: morphine 2 MG/ML inj. syringe IV PRN (13:15)
--- NOTE | 2020-05-13 13:26 | NUR ---
Patient started on Nitro drip. Blood pressure 194/112 upon initiation. Patient denies any pain and is sitting comfortably.
--- NOTE | 2020-05-13 17:32 | NUR ---
MD DR. HAN CALLED AND UPDATED ON PTS BPS AND NITRO GTT. RECEIVED VO TO DC NITRO GTT.
[2020-05-13] MEDS ORDERED: LOSA50TA64 PO (19:26)
[2020-05-13] MEDS ORDERED: ATOR20TA12 PO (19:26)
[2020-05-13] MEDS ORDERED: FURO-150 PO (19:26)
[2020-05-13] MEDS ORDERED: ASPI-611 PO (19:26)
[2020-05-13] MEDS ORDERED: METO25TA6 PO (19:26)
[2020-05-13] MEDS ORDERED: AMLO5TAB PO (19:26)
[2020-05-13 20:00] VITALS: BP 160/99
[2020-05-13] MEDS: K and/or MAG REPLACEMENT MC SCH (20:00)
[2020-05-13 22:00] VITALS: BP 191/108
--- NOTE | 2020-05-13 22:30 | NUR ---
MESSAGE: [id number] Brien Gupta. Current BP 191/108 no PRN'S for BP ordered. Nandini [facility] [id number]
[2020-05-14] MEDS: hydrALAZINE 20mg/ml inj. IV PRN ×2 (00:19→09:09)
[2020-05-14 02:00] VITALS: BP_SYST 104; BP_SYST 165; BP_DIAS 58; BP_DIAS 88
--- NOTE | 2020-05-14 05:32 | NUR ---
Patient in room PCU 3017. I have received report from MOLDER MACHINE TENDER Echo and had the opportunity to ask questions and assume patient care.
--- NOTE | 2020-05-14 06:00 | NUR ---
Patient in room PCU 3017. I have received report from Nandini SULLIVAN and had the opportunity to ask questions and assume patient care.
[2020-05-14 06:18] LABS: BASOPHILS # (AUTO) 0.1 X10'3 (0-0.2); BASOPHILS % (AUTO) 0.6 % (0-1); EOSINOPHILS # (AUTO) 0.2 X10'3 (0-0.9); EOSINOPHILS % (AUTO) 1.9 % (0-6); HEMATOCRIT 40.5 % (42.0-52.0); HEMOGLOBIN 13.6 g/dl (14.0-17.9); LYMPHOCYTES # (AUTO) 0.7 X10'3 (1.1-4.8); LYMPHOCYTES % (AUTO) 7.4 % (21-51); MEAN CORPUSCULAR HEMOGLOBIN 34.9 PG (27.0-31.0); MEAN CORPUSCULAR HGB CONC 33.5 g/dL (33.0-36.5); MEAN CORPUSCULAR VOLUME 104.3 FL (78-98); MEAN PLATELET VOLUME 9.8 FL (7.4-10.4); MONOCYTES % (AUTO) 11.4 % (2-12); NEUTROPHILS # (AUTO) 6.9 X10'3 (1.8-7.7); NEUTROPHILS % (AUTO) 78.7 % (42-75); PLATELET COUNT 184 X10'3 (140-440); RED BLOOD COUNT 3.89 X10'6 (4.70-6.10); RED CELL DISTRIBUTION WIDTH 13.3 % (11.5-14.5); WHITE BLOOD COUNT 8.8 X10'3 (4.5-11.0)
--- NOTE | 2020-05-14 06:44 | NUR ---
Problems reprioritized. Patient report given, questions answered & plan of care reviewed with Patrizia.
[2020-05-14 06:45] LABS: ALBUMIN 3.3 G/DL (3.4-5.0); ANION GAP 13 (8-16); BLOOD UREA NITROGEN 20 MG/DL (7-18); BUN/CREATININE RATIO 10.1 (5.4-32.0); CALCIUM 8.3 MG/DL (8.5-10.1); CHLORIDE 107 MMOL/L (99-107); CHOL/HDL RATIO 3.2 (0.00-4.99); CHOLESTEROL 103 MG/DL (0-200); CREATININE 1.98 MG/DL (0.60-1.10); GLUCOSE 85 MG/DL (70-104); HDL CHOLESTEROL 32 MG/DL (35-60); LDL CHOLESTEROL 62 MG/DL (50-100); MAGNESIUM 2.1 MG/DL (1.5-2.4); POTASSIUM 3.2 MMOL/L (3.5-5.1); SODIUM 144 MMOL/L (135-145); TOTAL CARBON DIOXIDE 24.2 MMOL/L (24-32); TRIGLYCERIDES 62 MG/DL (20-135); eGFR 35 ML/MIN
[2020-05-14 07:00] VITALS: BP 180/98
[2020-05-14] MEDS: K and/or MAG REPLACEMENT MC SCH ×2 (08:00→19:31)
[2020-05-14] MEDS: potassium Cl 20 mEq SR tablet PO PRN ×3 (09:09→19:34)
[2020-05-14] MEDS ORDERED: aminophylline 250mg/10ml inj. IV PRN (09:30)
[2020-05-14] MEDS ORDERED: regadenoson 0.4mg/5ml syringe IV PRN (09:30)
[2020-05-14] MEDS ORDERED: metoprolol tartrate 1mg/ml inj IV PRN (09:30)
[2020-05-14] MEDS ORDERED: nitroGLYCERIN 0.4mg SUBLingual tab SL PRN (09:30)
[2020-05-14] MEDS: amLODIPine 5mg tablet PO SCH (10:28)
[2020-05-14] MEDS: losartan 50mg tablet PO SCH (10:28)
[2020-05-14] MEDS: metoprolol tartrate 25mg tablet PO SCH ×2 (10:28→19:31)
[2020-05-14 11:15] VITALS: BP 169/86
[2020-05-14 15:00] VITALS: BP 149/99
[2020-05-14 18:00] VITALS: BP 164/100
--- NOTE | 2020-05-14 18:49 | NUR ---
Problems reprioritized. Patient report given, questions answered & plan of care reviewed with Kelley SULLIVAN.
[2020-05-14 22:00] VITALS: BP 150/88
[2020-05-15] VITALS (9 sets, daily range): BP systolic 143–176; BP diastolic 89–109
[2020-05-15 05:57] LABS: BASOPHILS # (AUTO) 0.1 X10'3 (0-0.2); BASOPHILS % (AUTO) 1.1 % (0-1); EOSINOPHILS # (AUTO) 0.3 X10'3 (0-0.9); EOSINOPHILS % (AUTO) 4.4 % (0-6); HEMATOCRIT 42.1 % (42.0-52.0); HEMOGLOBIN 13.9 g/dl (14.0-17.9); MEAN CORPUSCULAR HEMOGLOBIN 34.5 PG (27.0-31.0); MEAN CORPUSCULAR VOLUME 104.6 FL (78-98); MEAN PLATELET VOLUME 9.7 FL (7.4-10.4); MONOCYTES # (AUTO) 0.9 X10'3 (0-0.9); MONOCYTES % (AUTO) 15.2 % (2-12); NEUTROPHILS # (AUTO) 3.8 X10'3 (1.8-7.7); NEUTROPHILS % (AUTO) 63.3 % (42-75); PLATELET COUNT 194 X10'3 (140-440); RED BLOOD COUNT 4.03 X10'6 (4.70-6.10); RED CELL DISTRIBUTION WIDTH 13.2 % (11.5-14.5)
[2020-05-15 06:11] LABS: ALBUMIN 3.2 G/DL (3.4-5.0); ANION GAP 9 (8-16); BLOOD UREA NITROGEN 19 MG/DL (7-18); BUN/CREATININE RATIO 10.4 (5.4-32.0); CALCIUM 8.5 MG/DL (8.5-10.1); CHLORIDE 105 MMOL/L (99-107); CREATININE 1.82 MG/DL (0.60-1.10); GLUCOSE 98 MG/DL (70-104); MAGNESIUM 2.2 MG/DL (1.5-2.4); POTASSIUM 4.1 MMOL/L (3.5-5.1); SODIUM 139 MMOL/L (135-145); TOTAL CARBON DIOXIDE 24.9 MMOL/L (24-32); eGFR 38 ML/MIN
--- NOTE | 2020-05-15 06:35 | NUR ---
Problems reprioritized. Patient report given, questions answered & plan of care reviewed with Patrizia SULLIVAN.
--- NOTE | 2020-05-15 06:36 | NUR ---
Patient in room PCU 3017. I have received report from Kelley SULLIVAN and had the opportunity to ask questions and assume patient care.
[2020-05-15] MEDS: metoprolol tartrate 25mg tablet PO SCH (07:35)
[2020-05-15] MEDS: amLODIPine 5mg tablet PO SCH (07:35)
[2020-05-15] MEDS: losartan 50mg tablet PO SCH (07:37)
[2020-05-15] MEDS: K and/or MAG REPLACEMENT MC SCH (08:00)
[2020-05-15] MEDS ORDERED: regadenoson 0.4mg/5ml syringe IV PRN (09:55)
[2020-05-15 09:58] LABS: LARGE PLATELETS FEW; TOTAL CELLS COUNTED 100
[2020-05-15 09:59] LABS: PLATELET ESTIMATE NORMAL
[2020-05-15] MEDS ORDERED: LOSA50TA64 PO (12:33)
[2020-05-15] MEDS ORDERED: AMLO5TAB PO (12:33)
[2020-05-15] MEDS ORDERED: ATOR20TA12 PO (12:33)
[2020-05-15] MEDS ORDERED: METO25TA6 PO (12:33)
[2020-05-15] MEDS ORDERED: ASPI-611 PO (12:33)
--- NOTE | 2020-05-15 15:38 | NUR ---
Patient was d/c to home. His girlfriend picked him up. PIV was removed with cannula intact. RX were escripted to [facility] in [place]. PT was given written next dose info and medications were reviewed with pt. D/c info was reviewed with the patient and he verbalized understanding.
== END 2020-05-15 14:38 | disposition home or self-care (01) | DRG 194 ==
LOC: ER 10:51 → ED HOLD 13:13 → PCU 3S 19:25
PROVIDERS: ADMIT Internal Medicine; ATTEND Internal Medicine
DX: I13.0 Hypertensive heart and chronic kidney disease with heart failure and stage 1 through stage 4 chronic kidney disease, or unspecified chronic kidney disease (principal); E78.5 Hyperlipidemia, unspecified; N18.9 Chronic kidney disease, unspecified; J44.9 Chronic obstructive pulmonary disease, unspecified; Z90.49 Acquired absence of other specified parts of digestive tract; Z66 Do not resuscitate; I21.A1 Myocardial infarction type 2; I50.43 Acute on chronic combined systolic (congestive) and diastolic (congestive) heart failure; E87.6 Hypokalemia; I16.1 Hypertensive emergency; E86.0 Dehydration; N17.9 Acute kidney failure, unspecified; Z79.82 Long term (current) use of aspirin; Z79.899 Other long term (current) drug therapy; Z82.49 Family history of ischemic heart disease and other diseases of the circulatory system; Z87.891 Personal history of nicotine dependence
CPT/HCPCS: 36415; 71045; 78452; 80048; 80053; 80061; 83735; 83880; 84484; 85007; 85025; 87081; 93005; 93017; 93306; 93308; 96365; 96375; 99285; A9500; G0378; J0360; J1940; J2785; J3490

== ENCOUNTER 2021-10-16 07:42 | Outpatient (CLI) | payer MEDICAID ==
[~2021-10-16] VITALS: Ht 185.4 cm; Wt 122.5 kg
[~2021-10-16 07:42] MED LIST changes: +AMLO5TAB PO; -ASPI-1071 PO; +ASPI-611 PO; +ATOR20TA12 PO; -ATOR20TA66 PO; -FURO20TA4 PO; +LOP25T PO; -METO25TA6 PO; -NOR5T PO
[2021-10-16 08:16] LABS: TOTAL HEMOGLOBIN 16.6 G/dl (14.0-18.0)
[2021-10-16] MEDS: albuterol 2.5 MG/3 ML nebule NEB ONE (08:44)
== END 2021-10-16 23:59 | disposition home or self-care (01) ==
LOC: RT 07:42
PROVIDERS: ATTEND Nurse Practitioner Family
DX: R94.2 Abnormal results of pulmonary function studies (principal); R06.02 Shortness of breath
CPT/HCPCS: 85018; 94060; 94727; 94729; 94760